=== PATIENT | male | born 1980 | race Caucasian/White ===

== ENCOUNTER 2019-05-02 03:17 | Emergency (ER) | payer OTHER ==
[~2019-05-02] VITALS: Ht 172.7 cm; Wt 65.8 kg
[~2019-05-02 03:17] MED LIST: ACET325 PO; ALBU90OI INH; AZIT250 PO; CHLO500 PO; HYDACE5 PO; KETO10 PO; NAPR500 PO; OXYACE5T PO; PRED10 PO; RANI150 PO; TRAM50 PO; Veetids 500500 MG PO
== END 2019-05-02 04:20 | disposition home or self-care (01) ==
LOC: ER 03:17
DX: S46.211A Strain of muscle, fascia and tendon of other parts of biceps, right arm, initial encounter (principal); X58.XXXA Exposure to other specified factors, initial encounter; Z88.6 Allergy status to analgesic agent; Z88.8 Allergy status to other drugs, medicaments and biological substances
CPT/HCPCS: 73060; 73070; 99283-25; A9270

== ENCOUNTER 2019-06-03 06:28 | Day surgery (SDC) | payer OTHER ==
[~2019-06-03] VITALS: Ht 172.7 cm; Wt 62.0 kg
[2019-06-03] MEDS ORDERED: ACET325 PO (07:43)
--- NOTE | 2019-06-03 10:53 | NUR ---
06/03/19 1051 GEETHA ADAMS PT DISCHARGED VIA WC TO WITH CAR. ALL BELONGINGS RETURNED.
== END 2019-06-03 10:53 | disposition home or self-care (01) ==
LOC: ORSCSDS 06:28
PROVIDERS: Orthopaedic Surgery
PROC: 0LM30ZZ Reattachment of Right Upper Arm Tendon, Open Approach (ICD-10-PCS; principal; 2019-06-03 08:00)
PROC: 01N50ZZ Release Median Nerve, Open Approach (ICD-10-PCS; principal; 2019-06-03 08:00)
DX: M66.821 Spontaneous rupture of other tendons, right upper arm (principal); G56.01 Carpal tunnel syndrome, right upper limb; F17.210 Nicotine dependence, cigarettes, uncomplicated; Z79.82 Long term (current) use of aspirin; Z79.899 Other long term (current) drug therapy
CPT/HCPCS: C1713; J0171; J0690; J1100; J2250; J2405; J2704; J3010; J7120

== ENCOUNTER → 2020-12-17 | Outpatient (CLI) | payer OTHER ==
[2020-12-23 14:07] LABS: COTININE 63.4 ng/mL (.); NICOTINE 14.6 ng/mL (.)
== END ==
LOC: LAB 10:46 → LAB SHORT 10:46
PROVIDERS: Student in an Organized Health Care Education/Training Program
DX: F17.210 Nicotine dependence, cigarettes, uncomplicated (principal); Z88.6 Allergy status to analgesic agent; Z88.8 Allergy status to other drugs, medicaments and biological substances
CPT/HCPCS: G0480

== ENCOUNTER 2020-12-22 15:12 | Emergency (ER) | payer OTHER ==
[~2020-12-22] VITALS: Ht 172.7 cm; Wt 72.6 kg
[2020-12-22 16:36] LABS: BASOPHILS ABSOLUTE AUTO 0.08 K/mm3 (0.00-0.23); BASOPHILS PERCENT AUTO 1 % (0-2); EOSINOPHILS ABSOLUTE AUTO 0.23 K/mm3 (0.00-0.68); EOSINOPHILS PERCENT AUTO 2 % (0-6); Hematocrit 44.7 % (37.0-53.0); Hemoglobin 14.8 g/dL (13.5-17.5); IMMATURE GRAN ABSOLUTE AUTO 0.03 K/mm3 (0.00-0.10); IMMATURE GRAN PERCENT AUTO 0 % (0-1); LYMPHOCYTES ABSOLUTE AUTO 2.34 K/mm3 (0.84-5.20); LYMPHOCYTES PERCENT AUTO 23 % (21-46); MONOCYTES ABSOLUTE AUTO 0.73 K/mm3 (0.16-1.47); MONOCYTES PERCENT AUTO 7 % (4-13); Mean Corpuscular HGB 29.1 pg (26.0-34.0); Mean Corpuscular HGB Conc 33.1 g/dL (31.5-36.5); Mean Corpuscular Volume 88 fL (80-100); Mean Platelet Volume 10.5 fL (9.1-12.4); NEUTROPHILS PERCENT AUTO 67 % (41-73); Platelet Count 260 K/mm3 (150-400); RDW Coefficient Variation 12.9 % (11.7-14.2); RDW Standard Deviation 41.1 fL (35.1-46.3); Red Blood Cell Count 5.09 M/mm3 (4.30-5.90); White Blood Cell Count 10.31 K/mm3 (4.00-11.30)
[2020-12-22 16:49] LABS: Alanine Aminotransfer (ALT/SGP 35 U/L (12-78); Albumin/Globulin Ratio 1.2 (0.8-1.8); Alk Phos 69 U/L (50-136); Anion Gap 5 mmol/L (6-16); Aspartate Aminotrans (AST/SGOT 17 U/L (12-37); Bilirubin, Total 1.2 mg/dL (0.1-1.0); Blood Urea Nitrogen 13 mg/dL (8-24); Bun/Creatinine Ratio 9.9 (12.0-20.0); CO2, Blood 27 mmol/L (21-32); Calcium, Blood 8.5 mg/dL (8.5-10.1); Chloride, Blood 107 mmol/L (98-108); Creatinine, Blood 1.31 mg/dL (0.60-1.20); Globulin, Blood 3.4 g/dL (2.2-4.0); Glomerular Filtration Rate >60 (60-); Glucose, Blood 89 mg/dL (70-99); Potassium, Blood 3.6 mmol/L (3.5-5.5); Sodium, Blood 139 mmol/L (136-145); Total Protein, Blood 7.4 g/dL (6.4-8.2)
[2020-12-22 18:55] LABS: Source, Urine Clean Catch
[2020-12-22 18:59] LABS: Appearance, Urine Clear (Clear); Bilirubin, Urine Neg (Neg); Blood, Urine Neg (Neg); Color, Urine Yellow (P-Yellow); Glucose Qualitative, Urine Neg (Neg); Ketones, Urine Neg (Neg); Leukocyte Esterase, Urine Neg (Neg); Nitrite, Urine Neg (Neg); Protein, Urine Neg (Neg); Specific Gravity, Urine 1.015 (1.003-1.022); Urobilinogen, Urine NORM (Normal)
[2020-12-22 19:11] LABS: U Amphetamine Screen Not Detected; U Barbituate Screen Not Detected; U Benzodiazapine Screen Not Detected; U Buprenorphine Screen Not Detected; U Cannabinoids Screen Not Detected; U Cocaine Screen Not Detected; U Methadone Screen Not Detected; U Methamphetamine Screen Not Detected; U Opiates Screen Not Detected; U Oxycodone Screen Not Detected; U Phencyclidine Screen Not Detected; U Propoxyphene Screen Not Detected
== END 2020-12-22 20:18 | disposition home or self-care (01) ==
LOC: ER 15:12
PROVIDERS: Emergency Medicine; Physician Assistant
DX: R53.1 Weakness (principal); R42 Dizziness and giddiness; Z88.6 Allergy status to analgesic agent; Z88.8 Allergy status to other drugs, medicaments and biological substances; Z87.891 Personal history of nicotine dependence
CPT/HCPCS: 36415; 74176; 80053; 81003; 83690; 85025; 86850; 86900; 86901; 93005; 93010; 96374; 99284-25; J2405; J7030

== ENCOUNTER 2020-12-24 10:12 | Emergency (ER) | payer OTHER ==
[~2020-12-24] VITALS: Ht 172.7 cm; Wt 73.0 kg
[2020-12-24 10:58] LABS: BASOPHILS ABSOLUTE AUTO 0.06 K/mm3 (0.00-0.23); BASOPHILS PERCENT AUTO 1 % (0-2); EOSINOPHILS ABSOLUTE AUTO 0.18 K/mm3 (0.00-0.68); EOSINOPHILS PERCENT AUTO 2 % (0-6); Hemoglobin 14.3 g/dL (13.5-17.5); IMMATURE GRAN ABSOLUTE AUTO 0.03 K/mm3 (0.00-0.10); IMMATURE GRAN PERCENT AUTO 0 % (0-1); LYMPHOCYTES PERCENT AUTO 29 % (21-46); MONOCYTES ABSOLUTE AUTO 0.67 K/mm3 (0.16-1.47); MONOCYTES PERCENT AUTO 9 % (4-13); Mean Corpuscular HGB 29.1 pg (26.0-34.0); Mean Corpuscular HGB Conc 32.5 g/dL (31.5-36.5); Mean Corpuscular Volume 89 fL (80-100); Mean Platelet Volume 10.4 fL (9.1-12.4); NEUTROPHILS ABSOLUTE AUTO 4.59 K/mm3 (1.96-9.15); NEUTROPHILS PERCENT AUTO 59 % (41-73); Platelet Count 257 K/mm3 (150-400); RDW Standard Deviation 42.5 fL (35.1-46.3); Red Blood Cell Count 4.92 M/mm3 (4.30-5.90); White Blood Cell Count 7.83 K/mm3 (4.00-11.30)
[2020-12-24 11:36] LABS: International Normalized Ratio 0.95; Prothrombin Time Results 10.3 Sec (9.7-11.5)
[2020-12-24 11:36] LABS: SARS-Cov-2 (COVID-19) PCR, MMC NEGATIVE (NEGATIVE)
[2020-12-24 11:41] LABS: Albumin, Blood 3.7 g/dL (3.4-5.0); Albumin/Globulin Ratio 1.1 (0.8-1.8); Bilirubin, Total 0.9 mg/dL (0.1-1.0); Bun/Creatinine Ratio 8.3 (12.0-20.0); Calcium, Blood 8.6 mg/dL (8.5-10.1); Creatinine, Blood 1.33 mg/dL (0.60-1.20); Globulin, Blood 3.5 g/dL (2.2-4.0); Potassium, Blood 3.9 mmol/L (3.5-5.5); Total Protein, Blood 7.2 g/dL (6.4-8.2)
[2020-12-24 18:44] LABS: U Amphetamine Screen Not Detected; U Barbituate Screen Not Detected; U Benzodiazapine Screen Not Detected; U Buprenorphine Screen Not Detected; U Cannabinoids Screen Not Detected; U Cocaine Screen Not Detected; U Methadone Screen Not Detected; U Methamphetamine Screen Not Detected; U Opiates Screen Not Detected; U Oxycodone Screen Not Detected; U Phencyclidine Screen Not Detected; U Propoxyphene Screen Not Detected
== END 2020-12-24 18:45 | disposition home or self-care (01) ==
LOC: ER 10:12
PROVIDERS: Physician Assistant; Student in an Organized Health Care Education/Training Program
DX: R47.1 Dysarthria and anarthria (principal); R25.1 Tremor, unspecified; Z88.6 Allergy status to analgesic agent; Z88.8 Allergy status to other drugs, medicaments and biological substances; Z87.891 Personal history of nicotine dependence; Z20.822 Contact with and (suspected) exposure to COVID-19
CPT/HCPCS: 36415; 70450; 80053; 85025; 85610; 93005; 93010; 99285-25; U0004

== ENCOUNTER → 2020-12-31 | Outpatient (CLI) | payer OTHER ==
[2020-12-31 10:47] LABS: Source, Urine Clean Catch
[2020-12-31 12:14] LABS: Bilirubin, Urine Neg (Neg); Blood, Urine Neg (Neg); Color, Urine Yellow (P-Yellow); Glucose Qualitative, Urine Neg (Neg); Ketones, Urine Neg (Neg); Leukocyte Esterase, Urine Neg (Neg); Nitrite, Urine Neg (Neg); Protein, Urine Neg (Neg); Specific Gravity, Urine 1.015 (1.003-1.022); Urobilinogen, Urine NORM (Normal)
[2020-12-31 12:22] LABS: Appearance, Urine Clear (Clear)
== END | disposition home or self-care (01) ==
LOC: LAB 10:44 → LAB SHORT 10:44
PROVIDERS: Student in an Organized Health Care Education/Training Program
DX: R30.0 Dysuria (principal)
CPT/HCPCS: 81003

== ENCOUNTER 2021-06-04 21:52 | Emergency (ER) | payer OTHER ==
[~2021-06-04] VITALS: Ht 172.7 cm; Wt 77.1 kg
[~2021-06-04 21:52] MED LIST changes: +ATIVAN0.5 MG PO; +Celexa10 MG PO; +OMEP20ER PO; +ONDA4 PO; +TIZA4 PO
== END 2021-06-04 23:57 | disposition home or self-care (01) ==
LOC: ER 21:52
DX: S90.31XA Contusion of right foot, initial encounter (principal); Z87.891 Personal history of nicotine dependence; X58.XXXA Exposure to other specified factors, initial encounter
CPT/HCPCS: 73620; 96372; 99283-25; J1885

== ENCOUNTER → 2021-06-05 | Outpatient (CLI) | payer OTHER ==
[2021-06-16 19:09] LABS: NICOTINE 150.6 ng/mL (.)
== END | disposition home or self-care (01) ==
LOC: LAB SHORT 08:30
PROVIDERS: Student in an Organized Health Care Education/Training Program
DX: F17.201 Nicotine dependence, unspecified, in remission (principal)
CPT/HCPCS: G0480

== ENCOUNTER 2025-01-21 14:21 | Observation (INO) | payer MEDICARE ==
[~2025-01-21] VITALS: Ht 175.3 cm; Wt 74.8 kg
[2025-01-21 14:53] LABS: BASOPHILS ABSOLUTE AUTO 0.07 K/mm3 (0.00-0.23); BASOPHILS PERCENT AUTO 1 % (0-2); EOSINOPHILS ABSOLUTE AUTO 0.11 K/mm3 (0.00-0.68); EOSINOPHILS PERCENT AUTO 1 % (0-6); Hematocrit 42.3 % (37.0-53.0); Hemoglobin 14.0 g/dL (13.5-17.5); IMMATURE GRAN ABSOLUTE AUTO 0.02 K/mm3 (0.00-0.10); IMMATURE GRAN PERCENT AUTO 0 % (0-1); LYMPHOCYTES ABSOLUTE AUTO 1.92 K/mm3 (0.84-5.20); LYMPHOCYTES PERCENT AUTO 23 % (21-46); MONOCYTES ABSOLUTE AUTO 0.49 K/mm3 (0.16-1.47); MONOCYTES PERCENT AUTO 6 % (4-13); Mean Corpuscular HGB Conc 33.1 g/dL (31.5-36.5); Mean Corpuscular Volume 87 fL (80-100); NEUTROPHILS ABSOLUTE AUTO 5.79 K/mm3 (1.96-9.15); NEUTROPHILS PERCENT AUTO 69 % (41-73); NRBC ABSOLUTE 0.00 K/mm3 (0.00-0.02); NRBC Auto 0.0 /100 WBC (0.0-0.2); Platelet Count 264 K/mm3 (150-400); RDW Coefficient Variation 13.2 % (11.7-14.2); RDW Standard Deviation 41.9 fL (35.1-46.3)
[2025-01-21 15:15] LABS: Alanine Aminotransfer (ALT/SGP 49.0 U/L (12-78); Albumin, Blood 4.0 g/dL (3.4-5.0); Albumin/Globulin Ratio 1.1 (0.8-1.8); Anion Gap 9.0 mmol/L (3-11); Aspartate Aminotrans (AST/SGOT 19.0 U/L (12-37); Bilirubin, Total 0.8 mg/dL (0.1-1.0); Blood Urea Nitrogen 16.0 mg/dL (8-24); CO2, Blood 24.0 mmol/L (21-32); Calcium, Blood 8.8 mg/dL (8.5-10.1); Chloride, Blood 108.0 mmol/L (98-108); Creatinine, Blood 1.11 mg/dL (0.60-1.20); Globulin, Blood 3.5 g/dL (2.2-4.0); Glucose, Blood 149.0 mg/dL (70-99); Potassium, Blood 3.6 mmol/L (3.5-5.5); Sodium, Blood 137.0 mmol/L (136-145); Total Protein, Blood 7.5 g/dL (6.4-8.2)
[2025-01-21 15:49] LABS: Source, Urine Clean Catch
[2025-01-21 15:57] LABS: Bilirubin, Urine Neg (Neg); Color, Urine Yellow (P-Yellow); Glucose Qualitative, Urine Neg (Neg); Ketones, Urine Neg (Neg); Leukocyte Esterase, Urine Neg (Neg); Protein, Urine 1+ (Neg); Specific Gravity, Urine 1.030 (1.003-1.022); Urobilinogen, Urine NORM (Normal)
[2025-01-21 16:39] LABS: U Amphetamine Screen Not Detected; U Barbituate Screen Not Detected; U Benzodiazapine Screen Not Detected; U Buprenorphine Screen Not Detected; U Cannabinoids Screen Not Detected; U Cocaine Screen Not Detected; U Methadone Screen Not Detected; U Methamphetamine Screen Not Detected; U Opiates Screen Not Detected; U Oxycodone Screen Not Detected; U Phencyclidine Screen Not Detected
[2025-01-21] MEDS ORDERED: NS 1,000 ML IV SCH (19:55)
[2025-01-21] MEDS ORDERED: NS 1,000 ML IV ONE (20:00)
[2025-01-21] MEDS ORDERED: Ondansetron HCl 2 MG / ML 2ML Vial IV PRN (20:00)
[2025-01-21] MEDS ORDERED: DiphenhydrAMINE HCl 50 MG/ML 1ML Vial IV ONE (20:00)
[2025-01-21 21:20] VITALS: BP 117/85
[2025-01-21] MEDS ORDERED: LISI20 PO (21:47)
[2025-01-21] MEDS ORDERED: ATOR40TA PO (21:48)
[2025-01-21] MEDS ORDERED: PROP10 PO (21:48)
[2025-01-21] MEDS ORDERED: BACL10 PO (21:50)
[2025-01-22 00:41] VITALS: BP 114/83
[2025-01-22 04:21] VITALS: BP 103/70
[2025-01-22 04:54] LABS: CHOL/HDL RATIO 3.4; Cholesterol 130 mg/dL (50-200); HDL Cholesterol 38 mg/dL (>39); LDL/HDL RATIO 1.8; Low Density Lipoprotein Chol 69 mg/dL (0-110); Triglycerides 117 mg/dL (30-160); Very Low Density Lipoprot Chol 23 mg/dL (6-32)
--- NOTE | 2025-01-22 06:00 | NUR ---
PT ARRIVED TO FLOOR FROM ED VIA STRETCHER WITH . PT WAS ABLE TO STAND AND PIVOT TO BED. PT'S RIGHT SIDE IS WEAKER THAN LEFT, WHICH IS HIS BASELINE. PT IS ALERT AND ORIENTED X4 . PT AND ANSWERED ADMISSION QUESTIONS APPROPRIATELY. DURING THIS SHIFT, PT COMPLAINED ABOUT URGE TO VOID BUT INABILITY TO DO SO. BLADDER SCAN READ 309. PROVIDER CONTACTED FOR STRAIGHT CATH ORDER D/T PT'S INTENSE URGENCY TO VOID AND LESS THAN 400ML PER BLADDER SCAN. PT STRAIGHT CATH AND HAD 500ML OUTPUT. IV FLUIDS INFUSING. VSS. PT FOLLOWS COMMANDS. BED LOCKED IN LOWEST POSITION. BED ALARM ON. CALL LIGHT WITHIN REACH.
[2025-01-22 08:11] VITALS: BP 105/72
[2025-01-22] MEDS ORDERED: Enoxaparin 40 MG/0.4 ML SYR SC SCH (09:00)
[2025-01-22 11:17] VITALS: BP 117/80
[2025-01-22] MEDS ORDERED: CLOP75 PO (14:18)
== END 2025-01-22 15:18 | disposition home or self-care (01) ==
LOC: ER 14:21 → PCU 14:22 → ER 21:11 → PCU 21:20
PROVIDERS: Nurse Practitioner Acute Care; Student in an Organized Health Care Education/Training Program; ADMIT Internal Medicine
DX: G45.9 Transient cerebral ischemic attack, unspecified (principal); R53.1 Weakness; I10 Essential (primary) hypertension; E78.5 Hyperlipidemia, unspecified; G25.0 Essential tremor; Z87.891 Personal history of nicotine dependence; Z79.899 Other long term (current) drug therapy; Z88.6 Allergy status to analgesic agent; Z88.8 Allergy status to other drugs, medicaments and biological substances
CPT/HCPCS: 36415; 70450; 70496; 70498; 70551; 80053; 80061; 83036; 83718; 84484; 85025; 93005; 93010; 93306; 96372; 96374-59; 96375-59; 97116; 97162; 99285-25; A9270; G0378; J1200; J1650; J1720; J7030; Q9967

== ENCOUNTER 2025-01-27 09:17 | Observation (INO) | payer MEDICARE, OTHER ==
[~2025-01-27] VITALS: Ht 172.7 cm; Wt 78.2 kg
[2025-01-27] VITALS (22 sets, daily range): BP systolic 92–118; BP diastolic 57–93
[~2025-01-27 09:17] MED LIST changes: +ATOR40TA PO; +BACL10 PO; +CLOP75 PO; +LISI20 PO; +PROP10 PO
[2025-01-27 10:21] LABS: BASOPHILS ABSOLUTE AUTO 0.05 K/mm3 (0.00-0.23); BASOPHILS PERCENT AUTO 1 % (0-2); EOSINOPHILS ABSOLUTE AUTO 0.14 K/mm3 (0.00-0.68); EOSINOPHILS PERCENT AUTO 2 % (0-6); Hematocrit 43.8 % (37.0-53.0); Hemoglobin 14.9 g/dL (13.5-17.5); IMMATURE GRAN ABSOLUTE AUTO 0.03 K/mm3 (0.00-0.10); IMMATURE GRAN PERCENT AUTO 0 % (0-1); LYMPHOCYTES ABSOLUTE AUTO 1.81 K/mm3 (0.84-5.20); LYMPHOCYTES PERCENT AUTO 23 % (21-46); MONOCYTES ABSOLUTE AUTO 0.71 K/mm3 (0.16-1.47); MONOCYTES PERCENT AUTO 9 % (4-13); Mean Corpuscular HGB Conc 34.0 g/dL (31.5-36.5); Mean Corpuscular Volume 84 fL (80-100); NEUTROPHILS ABSOLUTE AUTO 5.08 K/mm3 (1.96-9.15); NEUTROPHILS PERCENT AUTO 65 % (41-73); NRBC ABSOLUTE 0.00 K/mm3 (0.00-0.02); NRBC Auto 0.0 /100 WBC (0.0-0.2); Platelet Count 289 K/mm3 (150-400); RDW Coefficient Variation 13.0 % (11.7-14.2); RDW Standard Deviation 40.0 fL (35.1-46.3)
[2025-01-27 10:55] LABS: Alanine Aminotransfer (ALT/SGP 65.0 U/L (12-78); Albumin, Blood 4.3 g/dL (3.4-5.0); Albumin/Globulin Ratio 1.2 (0.8-1.8); Anion Gap 8.0 mmol/L (3-11); Aspartate Aminotrans (AST/SGOT 27.0 U/L (12-37); Bilirubin, Total 1.0 mg/dL (0.1-1.0); Blood Urea Nitrogen 19.0 mg/dL (8-24); CO2, Blood 25.0 mmol/L (21-32); Calcium, Blood 9.2 mg/dL (8.5-10.1); Chloride, Blood 106.0 mmol/L (98-108); Creatinine, Blood 1.07 mg/dL (0.60-1.20); Globulin, Blood 3.7 g/dL (2.2-4.0); Glucose, Blood 90.0 mg/dL (70-99); Potassium, Blood 4.1 mmol/L (3.5-5.5); Sodium, Blood 135.0 mmol/L (136-145); Thyroid Stimulating Hormone 3.88 uIU/mL (0.360-4.800); Total Protein, Blood 8.0 g/dL (6.4-8.2)
[2025-01-27] MEDS ORDERED: Benzocaine Oral Spray 0.5ML UD ONE (12:37)
--- NOTE | 2025-01-27 12:39 | NUR ---
Direct Admit Pt arrived to PCU-2 as a walk in at approx 0930. Pt A&O x4. VSS. Spo2 > 92% on RA. Monitor showing SB-SR, HR 50s-60s. Pt w/ report of prior stroke resulting in feeling "weaker than before the stroke." Pt right side weaker than left. Pt w/ stable independent ambulation. Pt reports Dr Peters referred him to PCU to rule out PFO. Pt reports last ate last night around 8 o'clock, but had some water this morning, otherwise has been NPO today. w/ order for cardiology consult for CLYDE. Break Up Worker to bedside. Pt NPO awaiting CLYDE.
--- NOTE | 2025-01-27 13:09 | NUR ---
Gone for CLYDE Pt taken to heart center for CLYDE @ approx 1300.
[2025-01-27] MEDS ORDERED: NS 1,000 ML IV ONE (13:15)
[2025-01-27] MEDS ORDERED: Ondansetron HCl 2 MG / ML 2ML Vial ONE (14:33)
--- NOTE | 2025-01-27 14:45 | NUR ---
PT REPORTS NAUSEA RESOLVED POST ZOFRAN, DENIES PAIN; VSS, ON RA.
--- NOTE | 2025-01-27 15:07 | NUR ---
REPORT CALLED TO [facility]; ALL QUESTIONS ANSWERED. PT RETURNED TO ROOM VIA W/C, CONDITION STABLE.
--- NOTE | 2025-01-27 15:12 | NUR ---
Return from procedure Pt brought back to PCU-2 from heart center. Pt drowsy. VSS. Monitor showing SR, HR 60s-70s. Spo2 > 92% on RA. Pt reports throat "sore." Informed by HC staff, pt okay to eat after 1600.
[2025-01-27] MEDS ORDERED: Propofol 10mg/ml 20 ml Vial (Procedural) IV ONE (16:16)
[2025-01-27] MEDS ORDERED: ELIQUIS5 M2 PO (18:03)
--- NOTE | 2025-01-27 18:49 | NUR ---
DISCHARGE SUMMARY EDUCATED PT AND SPOUSE ON PFO AND TREATMENT, MEDICATIONS, DISCHARGE INSTRUCTIONS AND FOLLOW UP APPOINTMENTS. MEDICATIONS FAXED TO [facility] PER PT REQUEST, EDUCATED ON COUPON FOR ELIQUIS IF NEEDED. VSS. PT LEFT VIA WHEELCHAIR.
[2025-01-28] MEDS ORDERED: Enoxaparin 40 MG/0.4 ML SYR SC SCH (09:00)
== END 2025-01-27 18:50 | disposition home or self-care (01) ==
LOC: PCU 09:17
PROVIDERS: ADMIT Internal Medicine
DX: Q21.12 Patent foramen ovale (principal); E11.9 Type 2 diabetes mellitus without complications; I10 Essential (primary) hypertension; G25.0 Essential tremor; E78.5 Hyperlipidemia, unspecified; G47.33 Obstructive sleep apnea (adult) (pediatric); G25.89 Other specified extrapyramidal and movement disorders; Z87.891 Personal history of nicotine dependence; Z79.899 Other long term (current) drug therapy; Z88.6 Allergy status to analgesic agent; Z88.8 Allergy status to other drugs, medicaments and biological substances; Z86.73 Personal history of transient ischemic attack (TIA), and cerebral infarction without residual deficits
CPT/HCPCS: 80053; 84443; 85025; 93312; 93325; A9270; G0378; G0379; J2405; J2704; J7030

== ENCOUNTER 2025-03-03 15:29 | Emergency (ER) | payer MEDICARE, OTHER ==
[~2025-03-03] VITALS: Ht 264.2 cm; Wt 80.3 kg
[~2025-03-03 15:29] MED LIST changes: +ELIQUIS5 M2 PO
[2025-03-03 16:12] LABS: BASOPHILS ABSOLUTE AUTO 0.05 K/mm3 (0.00-0.23); BASOPHILS PERCENT AUTO 1 % (0-2); EOSINOPHILS ABSOLUTE AUTO 0.12 K/mm3 (0.00-0.68); EOSINOPHILS PERCENT AUTO 2 % (0-6); Hematocrit 42.2 % (37.0-53.0); Hemoglobin 14.0 g/dL (13.5-17.5); IMMATURE GRAN ABSOLUTE AUTO 0.03 K/mm3 (0.00-0.10); IMMATURE GRAN PERCENT AUTO 0 % (0-1); LYMPHOCYTES ABSOLUTE AUTO 1.98 K/mm3 (0.84-5.20); LYMPHOCYTES PERCENT AUTO 25 % (21-46); MONOCYTES ABSOLUTE AUTO 0.52 K/mm3 (0.16-1.47); MONOCYTES PERCENT AUTO 7 % (4-13); Mean Corpuscular HGB Conc 33.2 g/dL (31.5-36.5); Mean Corpuscular Volume 88 fL (80-100); NEUTROPHILS ABSOLUTE AUTO 5.15 K/mm3 (1.96-9.15); NEUTROPHILS PERCENT AUTO 66 % (41-73); NRBC ABSOLUTE 0.00 K/mm3 (0.00-0.02); NRBC Auto 0.0 /100 WBC (0.0-0.2); Platelet Count 274 K/mm3 (150-400); RDW Coefficient Variation 13.0 % (11.7-14.2); RDW Standard Deviation 42.1 fL (35.1-46.3)
[2025-03-03 16:36] LABS: Alanine Aminotransfer (ALT/SGP 51.0 U/L (12-78); Albumin, Blood 4.0 g/dL (3.4-5.0); Albumin/Globulin Ratio 1.1 (0.8-1.8); Anion Gap 11.0 mmol/L (3-11); Aspartate Aminotrans (AST/SGOT 24.0 U/L (12-37); Bilirubin, Total 0.8 mg/dL (0.1-1.0); Blood Urea Nitrogen 13.0 mg/dL (8-24); CO2, Blood 23.0 mmol/L (21-32); Calcium, Blood 8.8 mg/dL (8.5-10.1); Chloride, Blood 106.0 mmol/L (98-108); Creatinine, Blood 1.12 mg/dL (0.60-1.20); Globulin, Blood 3.8 g/dL (2.2-4.0); Glucose, Blood 143.0 mg/dL (70-99); Potassium, Blood 3.5 mmol/L (3.5-5.5); Sodium, Blood 136.0 mmol/L (136-145); Total Protein, Blood 7.8 g/dL (6.4-8.2)
[2025-03-03 19:15] VITALS: BP 124/84
== END 2025-03-03 19:34 | disposition home or self-care (01) ==
LOC: ER 15:29
PROVIDERS: Student in an Organized Health Care Education/Training Program
DX: M94.0 Chondrocostal junction syndrome [Tietze] (principal); R00.0 Tachycardia, unspecified; F41.9 Anxiety disorder, unspecified; R73.9 Hyperglycemia, unspecified; Z59.89 Other problems related to housing and economic circumstances; Z79.899 Other long term (current) drug therapy; Z79.01 Long term (current) use of anticoagulants; Z87.891 Personal history of nicotine dependence; Z88.8 Allergy status to other drugs, medicaments and biological substances; Z88.6 Allergy status to analgesic agent
CPT/HCPCS: 71046; 80053; 83605; 83880; 84484; 85025; 93005; 93010; 99285-25